=== PATIENT | male | born 1970 | race Caucasian/White ===

== ENCOUNTER 2019-04-10 06:38 | Day surgery (SDC) | payer OTHER ==
[2019-04-10] MEDS ORDERED: Lactated Ringers 1,000 ML IV SCH (07:00)
[2019-04-10] MEDS ORDERED: Sodium Chloride 0.9% 10 ML Syringe FLUSH PRN (07:00)
[2019-04-10] MEDS ORDERED: fentaNYL 100 MCG/2 ML SDV ONE (08:09)
[2019-04-10] MEDS ORDERED: Propofol 200 MG/20 ML SDV ONE ×2 (08:09→09:28)
--- NOTE | 2019-04-10 12:31 | OR ---
PRE-OPERATIVE DIAGNOSES: Screening colonoscopy. This is the patient's first colonoscopy. No family history of any colon cancer or colon polyps. POST-OPERATIVE DIAGNOSES: 1. A 2-mm polyp at 80 cm, removed using cold forceps. 2. [id number] diffuse diverticulosis. 3. Normal-appearing distal ileum. PROCEDURE: Colonoscopy with polypectomy x1 using cold forceps. ANESTHESIA: Monitored anesthesia care. BOWEL PREP: Good. Андрей is 49-year-old male, who was brought to the endoscopy suite after discussing risks and benefits of the procedure. Informed consent was obtained for conscious sedation and colonoscopy with or without biopsy and/or polypectomy. We also discussed possibility of missed lesions. Pre-procedure exam was unremarkable. IV, oxygen, and monitors were placed. The patient was placed in the left lateral decubitus position. Sedation was administered and a digital rectal exam was performed, which was unremarkable. Colonoscope was passed into the rectum and slowly advanced all the way to the cecum. Cecum was viewed and photographed. Ileocecal valve was intubated and distal ileum was normal in appearance. The colonoscope was slowly withdrawn and the mucosa was closely observed in a direct circumferential manner. The ascending colon was unremarkable. The transverse colon revealed a 2-mm polyp at 80 cm, removed using cold forceps. The descending colon was unremarkable. The sigmoid colon was unremarkable. The patient did have [id number] diffuse diverticulosis, left greater than right. Retroflexion was performed, rectal mucosa unremarkable. Scope was removed. The patient tolerated the procedure well. The patient was monitored until that baseline status. Discharge instructions were reviewed and the patient was discharged in good condition. COMPLICATIONS: None. TOTAL TIME: 23 minutes. ESTIMATED BLOOD LOSS: Less than 1 mL. RECOMMENDATIONS/FOLLOW-UP: We will await results of path report to determine ideal followup interval. I would like to kindly thank Tomasz Guzman for this referral. DMB: 04/10/2019 10:50:42 MODL: 04/10/2019 12:18:48 /[id number]
== END 2019-04-10 11:16 | disposition home or self-care (01) ==
LOC: VM.SDS 06:38
PROVIDERS: ATTEND Family Medicine
DX: Z12.11 Encounter for screening for malignant neoplasm of colon (principal); D12.4 Benign neoplasm of descending colon; K57.30 Diverticulosis of large intestine without perforation or abscess without bleeding; I10 Essential (primary) hypertension; F32.9 Major depressive disorder, single episode, unspecified; F10.21 Alcohol dependence, in remission; E66.3 Overweight; Z87.891 Personal history of nicotine dependence; Z68.31 Body mass index [BMI] 31.0-31.9, adult
CPT/HCPCS: J2704; J3010; J7120

== ENCOUNTER 2024-11-20 06:25 | Emergency (ER) | payer OTHER ==
[2024-11-20 07:00] LABS: BASOPHILS ABSOLUTE AUTO 0.0 x10^3/uL (0.0-0.2); BASOPHILS PERCENT AUTO 0.4 % (0.2-1.2); EOSINOPHILS ABSOLUTE AUTO 0.1 x10^3/uL (0.0-0.5); EOSINOPHILS PERCENT AUTO 1.1 % (0.0-4.0); IMMATURE GRAN ABSOLUTE AUTO 0.02 x10^3/uL (0.00-0.07); IMMATURE GRAN PERCENT AUTO 0.20 % (0.00-0.43); LYMPHOCYTES ABSOLUTE AUTO 2.6 x10^3/uL (1.0-4.8); LYMPHOCYTES PERCENT AUTO 27.4 % (25.0-50.0); MONOCYTES ABSOLUTE AUTO 0.8 x10^3/uL (0.0-0.8); MONOCYTES PERCENT AUTO 8.2 % (2.0-11.0); NEUTROPHILS ABSOLUTE AUTO 5.8 x10^3/uL (1.8-7.7); NEUTROPHILS PERCENT AUTO 62.7 % (50.0-80.0); PLATELET COUNT,PLT 224 x10^3/uL (130-400); RED BLOOD CELL COUNT 4.85 x10^6/uL (4.5-6.0); WHITE BLOOD CELL COUNT,WBC 9.3 x10^3/uL (4.0-10.0)
[2024-11-20 07:24] LABS: A/G RATIO 1.26; ALANINE AMINOTRANSFERASE,ALT 41.0 U/L (16-63); ASPARTATE AMNIOTRANSFERASE,AST 36.0 U/L (15-37); BILIRUBIN TOTAL 0.8 mg/dL (0.2-1.0); BLOOD UREA NITROGEN,BUN 14.0 mg/dL (7-18); CARBON DIOXIDE,CO2 26.0 mmol/L (21-32); CHLORIDE,CL 100.0 mmol/L (98-107); CREATININE 0.9 mg/dL (0.70-1.30); EST CRCL DRUG DOSING (CG) 94.63 mL/min; GLUCOSE RANDOM 128.0 mg/dL (70-99); POTASSIUM,K 3.6 mmol/L (3.5-5.1); PROTEIN TOTAL,TP 7.0 g/dL (6.4-8.2); SODIUM,NA 139.0 mmol/L (136-145)
[2024-11-20 07:29] LABS: ESTIMATED GFR 100.0 mL/min (>=60)
== END 2024-11-20 07:47 | disposition home or self-care (01) ==
LOC: VM.ED 06:25
DX: M94.0 Chondrocostal junction syndrome [Tietze] (principal); I10 Essential (primary) hypertension; E66.9 Obesity, unspecified; Z68.31 Body mass index [BMI] 31.0-31.9, adult
CPT/HCPCS: 80053; 84484; 85025; 93005; 99285; A9270; 93010; 99284